=== PATIENT | male | born 1990 | race Caucasian/White ===

== ENCOUNTER 2018-07-19 18:38 | Emergency (ER) | payer MEDICAID ==
[~2018-07-19] VITALS: Ht 170.2 cm; Wt 63.0 kg
[~2018-07-19 18:38] MED LIST: CLIN150C8 PO; HYDR-2561 PO; LORA-269 PO; ONDA4TAB6 PO
[2018-07-19 19:20] VITALS: BP 133/97
== END 2018-07-19 20:19 | disposition left against medical advice (07) ==
LOC: ER 18:38
DX: R36.9 Urethral discharge, unspecified (principal); Z53.21 Procedure and treatment not carried out due to patient leaving prior to being seen by health care provider

== ENCOUNTER 2018-07-22 20:19 | Emergency (ER) | payer MEDICAID | END 2018-07-22 21:04 | disposition left against medical advice (07) | LOC: ER 20:20 | DX: A64 Unspecified sexually transmitted disease (principal); Z53.20 Procedure and treatment not carried out because of patient's decision for unspecified reasons ==

== ENCOUNTER 2021-04-16 08:20 | Emergency (ER) | payer MEDICAID, OTHER ==
[~2021-04-16] VITALS: Ht 170.2 cm; Wt 65.0 kg
[~2021-04-16 08:20] MED LIST changes: +LIDOcaine 1% 30ml preserv. free vial ONE
[2021-04-16 08:21] VITALS: BP 140/81
== END 2021-04-16 10:54 | disposition home or self-care (01) ==
LOC: ER 08:20
DX: S61.213A Laceration without foreign body of left middle finger without damage to nail, initial encounter (principal); F41.9 Anxiety disorder, unspecified; F12.90 Cannabis use, unspecified, uncomplicated; F15.90 Other stimulant use, unspecified, uncomplicated; F11.90 Opioid use, unspecified, uncomplicated; Z48.02 Encounter for removal of sutures; Z98.890 Other specified postprocedural states; Z72.89 Other problems related to lifestyle; Z88.8 Allergy status to other drugs, medicaments and biological substances; Z79.2 Long term (current) use of antibiotics; Z79.899 Other long term (current) drug therapy; X58.XXXA Exposure to other specified factors, initial encounter; Y93.89 Activity, other specified; Y92.89 Other specified places as the place of occurrence of the external cause; Y99.8 Other external cause status
CPT/HCPCS: 12002; 73140; 99283; J2001

== ENCOUNTER 2021-04-23 10:06 | Emergency (ER) | payer OTHER ==
[~2021-04-23] VITALS: Ht 170.2 cm; Wt 65.0 kg
[~2021-04-23 10:06] MED LIST changes: -LIDOcaine 1% 30ml preserv. free vial ONE
[2021-04-23 11:53] VITALS: BP 148/104
== END 2021-04-23 14:15 | disposition home or self-care (01) ==
LOC: ER 10:07
DX: S61.231D Puncture wound without foreign body of left index finger without damage to nail, subsequent encounter (principal); F41.9 Anxiety disorder, unspecified; F12.90 Cannabis use, unspecified, uncomplicated; F15.90 Other stimulant use, unspecified, uncomplicated; F11.90 Opioid use, unspecified, uncomplicated; Z98.890 Other specified postprocedural states; Z72.89 Other problems related to lifestyle; Z88.8 Allergy status to other drugs, medicaments and biological substances; Z79.2 Long term (current) use of antibiotics; Z79.899 Other long term (current) drug therapy; X58.XXXD Exposure to other specified factors, subsequent encounter
CPT/HCPCS: 99281

== ENCOUNTER 2021-05-19 02:33 | Emergency (ER) | payer MEDICAID, OTHER ==
[~2021-05-19] VITALS: Ht 170.2 cm; Wt 65.0 kg
--- NOTE | 2021-05-19 03:16 | NUR ---
Officers at bedside to speak with patient-
--- NOTE | 2021-05-19 03:33 | NUR ---
Mother of patient can be reached at [phone]. States she will be free around 9am if needed. Patient at this time states he does not wish to speak with anyone.
[2021-05-19 04:00] VITALS: BP 127/78
[2021-05-19] MEDS ORDERED: normal saline 1000ML IV soln IVB ONE (04:40)
[2021-05-19] MEDS ORDERED: TETanus/Pertussis (Acell)/Diphther VAC/PF (Tdap-Adult) 0.5ml syringe IMVAC ONE (04:45)
[2021-05-19] MEDS ORDERED: LIDOcaine 1% W/epiNEPHrine 1:200,000 10ml vial IJ ONE (04:45)
[2021-05-19] MEDS ORDERED: LIDOcaine 1% w/epiNEPHrine 1:200,000 30ml vial IJ ONE (04:50)
--- NOTE | 2021-05-19 05:01 | NUR ---
Pt. to CT scan with pattern grader cutter.
[2021-05-19 05:18] LABS: BASOPHILS # (AUTO) 0.1 X10'3 (0-0.2); BASOPHILS % (AUTO) 0.5 % (0-1); EOSINOPHILS % (AUTO) 0.4 % (0-6); HEMATOCRIT 47.6 % (42.0-52.0); HEMOGLOBIN 15.8 g/dl (14.0-17.9); LYMPHOCYTES # (AUTO) 1.5 X10'3 (1.1-4.8); LYMPHOCYTES % (AUTO) 12.7 % (21-51); MEAN CORPUSCULAR HEMOGLOBIN 30.6 PG (27.0-31.0); MEAN CORPUSCULAR HGB CONC 33.3 g/dL (33.0-36.5); MEAN CORPUSCULAR VOLUME 91.9 FL (78-98); MONOCYTES # (AUTO) 0.5 X10'3 (0-0.9); MONOCYTES % (AUTO) 4.6 % (2-12); NEUTROPHILS # (AUTO) 9.7 X10'3 (1.8-7.7); NEUTROPHILS % (AUTO) 81.8 % (42-75); PLATELET COUNT 260 X10'3 (140-440); RED BLOOD COUNT 5.17 X10'6 (4.70-6.10); RED CELL DISTRIBUTION WIDTH 14.2 % (11.5-14.5); WHITE BLOOD COUNT 11.9 X10'3 (4.5-11.0)
[2021-05-19 05:33] LABS: ALANINE AMINOTRANSFERASE 120 U/L (12-78); ALBUMIN 4.1 G/DL (3.4-5.0); ALBUMIN/GLOBULIN RATIO 1.2 (1.1-1.5); ALKALINE PHOSPHATASE 73 IU/L (46-116); ANION GAP 11 (8-16); ASPARTATE AMINO TRANSFERASE 84 U/L (10-37); BILIRUBIN,TOTAL 0.3 MG/DL (0.1-1.0); BLOOD UREA NITROGEN 12 MG/DL (7-18); BUN/CREATININE RATIO 15.8 (5.4-32.0); CALCIUM 8.1 MG/DL (8.5-10.1); CHLORIDE 107 MMOL/L (99-107); CREATININE 0.76 MG/DL (0.60-1.10); ETHANOL 0.231 GM/DL (0.0-0.010); GLUCOSE 107 MG/DL (70-104); POTASSIUM 4.1 MMOL/L (3.5-5.1); SODIUM 143 MMOL/L (135-145); TOTAL CARBON DIOXIDE 25.3 MMOL/L (24-32); TOTAL PROTEIN 7.4 G/DL (6.4-8.2); eGFR > 90 ML/MIN
== END 2021-05-19 07:55 | disposition home or self-care (01) ==
LOC: ER 02:33
DX: S01.01XA Laceration without foreign body of scalp, initial encounter (principal); S01.511A Laceration without foreign body of lip, initial encounter; F10.129 Alcohol abuse with intoxication, unspecified; F12.90 Cannabis use, unspecified, uncomplicated; F15.90 Other stimulant use, unspecified, uncomplicated; F11.90 Opioid use, unspecified, uncomplicated; Y90.0 Blood alcohol level of less than 20 mg/100 ml; Z88.8 Allergy status to other drugs, medicaments and biological substances; Z79.899 Other long term (current) drug therapy; Y09 Assault by unspecified means; Y93.89 Activity, other specified; Y92.481 Parking lot as the place of occurrence of the external cause; Y99.8 Other external cause status
CPT/HCPCS: 12001; 12011; 36415; 70450; 71045; 80053; 80320; 85025; 90471; 90715; 93005; 96360; 96361; 99285; J7030

== ENCOUNTER 2024-10-27 18:32 | Emergency (ER) | payer MEDICAID, OTHER ==
[~2024-10-27] VITALS: Ht 170.2 cm; Wt 68.2 kg
[~2024-10-27 18:32] MED LIST changes: +CLIN-214 PO; -CLIN150C8 PO
[2024-10-27 18:49] VITALS: BP 135/86; PULSE 94; RESP 20; TEMP 98.5; O2SAT 99
== END 2024-10-27 20:00 ==
LOC: ER 18:32
DX: F10.129 Alcohol abuse with intoxication, unspecified (principal); F12.90 Cannabis use, unspecified, uncomplicated; F15.90 Other stimulant use, unspecified, uncomplicated; F11.90 Opioid use, unspecified, uncomplicated; F41.9 Anxiety disorder, unspecified; Z88.8 Allergy status to other drugs, medicaments and biological substances; Z98.890 Other specified postprocedural states; Y90.9 Presence of alcohol in blood, level not specified; V89.2XXA Person injured in unspecified motor-vehicle accident, traffic, initial encounter; Y93.89 Activity, other specified; Y92.89 Other specified places as the place of occurrence of the external cause; Y99.8 Other external cause status
CPT/HCPCS: 99283

== ENCOUNTER 2025-02-07 13:39 | Inpatient (IN) | payer BC, OTHER ==
[~2025-02-07] VITALS: Ht 170.2 cm; Wt 63.6 kg
[2025-02-07 14:55] LABS: BASOPHILS % (AUTO) 0.4 % (0-1); EOSINOPHILS % (AUTO) 0 % (0-6); HEMATOCRIT 41.3 % (42.0-52.0); HEMOGLOBIN 13.9 g/dl (14.0-17.9); LYMPHOCYTES # (AUTO) 0.5 X10'3 (1.1-4.8); LYMPHOCYTES % (AUTO) 4.1 % (21-51); MEAN CORPUSCULAR HGB CONC 33.7 g/dL (33.0-36.5); MEAN CORPUSCULAR VOLUME 92.1 FL (78-98); MONOCYTES # (AUTO) 0.7 X10'3 (0-0.9); MONOCYTES % (AUTO) 5.5 % (2-12); PLATELET COUNT 139 X10'3 (140-440); RED BLOOD COUNT 4.48 X10'6 (4.70-6.10); WHITE BLOOD COUNT 12.3 X10'3 (4.5-11.0)
[2025-02-07 15:13] LABS: ALANINE AMINOTRANSFERASE 69 U/L (12-78); ALBUMIN 3.8 G/DL (3.4-5.0); ALBUMIN/GLOBULIN RATIO 1.2 (1.1-1.5); ALKALINE PHOSPHATASE 53 IU/L (46-116); ANION GAP 14 (8-16); ASPARTATE AMINO TRANSFERASE 55 U/L (10-37); BILIRUBIN,TOTAL 0.6 MG/DL (0.1-1.0); BLOOD UREA NITROGEN 9 MG/DL (7-18); BUN/CREATININE RATIO 10.5 (10.0-20.0); CALCIUM 8.4 MG/DL (8.5-10.1); CHLORIDE 103 MMOL/L (99-107); CREATININE 0.86 MG/DL (0.60-1.10); GLUCOSE 156 MG/DL (70-104); SODIUM 141 MMOL/L (135-145); TOTAL CARBON DIOXIDE 24.5 MMOL/L (24-32); TOTAL PROTEIN 7.1 G/DL (6.4-8.2); eCRCL 109 ML/MIN; eGFR > 90 ML/MIN
[2025-02-07] MEDS: normal saline 1000ml 1,000 ML IV ONE ×2 (15:19→15:20)
[2025-02-07 15:20] LABS: PRO BRAIN NATRIURETIC PEPTIDE 50 PG/ML (0-125)
[2025-02-07] MEDS: diazepam inj 5 MG/ML inj. IV ONE ×2 (15:20→17:15)
[2025-02-07] MEDS: LIDOcaine 5% patch TP STA (17:14)
[2025-02-07] MEDS: ketorolac trometh 15mg/ml vial 15 MG/ML ML IV ONE (17:15)
[2025-02-07] MEDS: phenoBARBITAL sod 130mg/ml inj. IV STA (17:15)
[2025-02-07] MEDS: thiamine 100mg/ml 2ml inj. IV ONE (17:15)
[2025-02-07] MEDS ORDERED: NO HOME MEDS (20:00)
[2025-02-07] MEDS ORDERED: potassium Cl 40MEQ/1/2NS 520ml 520 ML IV PRN (21:05)
[2025-02-07] MEDS ORDERED: mag hydrox/Alum hydrox/simeth 30ml oral suspension PO PRN (21:05)
[2025-02-07] MEDS ORDERED: ondansetron/PF 4mg/2ml inj IV PRN (21:05)
[2025-02-07] MEDS ORDERED: magnesium sulf-water 2g/50mL 50 ML IV PRN (21:05)
[2025-02-07] MEDS ORDERED: magnesium hydroxide 30ml (MOM) UD suspension PO PRN (21:05)
[2025-02-07] MEDS ORDERED: magnesium sulf-water 4G/100mL 100 ML IV PRN (21:05)
[2025-02-07] MEDS ORDERED: haloperidol lactate 5mg/ml inj IM PRN (21:05)
[2025-02-07] MEDS ORDERED: haloperidol 5mg tablet PO PRN (21:05)
[2025-02-07] MEDS ORDERED: acetaminophen 325mg tablet PO PRN (21:05)
[2025-02-07] MEDS ORDERED: LORazepam 2 mg/ml vial IV PRN (21:05)
[2025-02-07] MEDS ORDERED: magnesium Cl slow-release 64mg tablet PO PRN (21:05)
[2025-02-07] MEDS ORDERED: metoclopramide 5 mg/ml inj IV PRN (21:05)
[2025-02-07] MEDS: morphine 2 MG/ML inj. syringe IV PRN (21:24)
[2025-02-07] MEDS: normal saline 1000ml 1,000 ML IV SCH (21:25)
[2025-02-07 21:38] LABS: HEMOGLOBIN A1C 5.3 % (4.5-6.2)
[2025-02-07 21:46] LABS: BILIRUBIN,URINE NEGATIVE (Neg); CLARITY,URINE CLEAR (Clear); COLOR,URINE YELLOW (Yellow); GLUCOSE, URINE NEGATIVE (Neg); KETONES,URINE 40 mg/dl (Neg); LEUKOCYTE ESTERASE ,URINE NEGATIVE (Neg); NITRITES, URINE NEGATIVE (Neg); OCCULT BLOOD,URINE NEGATIVE (Neg); PH,URINE 7.5 (4.8-8.0); PROTEIN,URINE 100 mg/dl (Neg)
[2025-02-07 21:50] LABS: UA COLLECTION TYPE URINAL
[2025-02-07 21:58] LABS: BACTERIA,URINE NONE SEEN /HPF (Neg); MUCUS STRANDS NONE SEEN /LPF (Neg); RBC,URINE NONE SEEN /HPF (0-2); SQUAMOUS EPITHELIAL CELL,UR FEW /LPF (FEW); WBC,URINE 0-4 /HPF (0-4)
[2025-02-07 22:24] LABS: FREE T4 (FREE THYROXINE) 0.85 NG/DL (0.73-1.40); THYROID STIMULATING HORMONE 1.54 ulU/ml (0.34-4.50)
[2025-02-07 22:33] LABS: ETHANOL < 10 MG/DL (<10)
[2025-02-08] VITALS (12 sets, daily range): BP systolic 154–182; BP diastolic 99–124; PULSE 62–126; RESP 14–20; TEMP 96.1–98.9; O2SAT 97–100
[2025-02-08] MEDS: acetaminophen 325mg tablet PO PRN (00:09)
[2025-02-08] MEDS: HYDROcodone/acetaminophen 5mg/325mg tablet PO PRN (05:03)
[2025-02-08 06:41] LABS: BASOPHILS % (AUTO) 0.5 % (0-1); EOSINOPHILS # (AUTO) 0.1 X10'3 (0-0.9); HEMATOCRIT 40.5 % (42.0-52.0); HEMOGLOBIN 13.9 g/dl (14.0-17.9); LYMPHOCYTES # (AUTO) 1.2 X10'3 (1.1-4.8); LYMPHOCYTES % (AUTO) 20.9 % (21-51); MEAN CORPUSCULAR HEMOGLOBIN 31.8 PG (27.0-31.0); MEAN CORPUSCULAR HGB CONC 34.3 g/dL (33.0-36.5); MEAN CORPUSCULAR VOLUME 92.7 FL (78-98); MEAN PLATELET VOLUME 8.8 FL (7.4-10.4); MONOCYTES # (AUTO) 0.6 X10'3 (0-0.9); MONOCYTES % (AUTO) 10.1 % (2-12); NEUTROPHILS # (AUTO) 3.9 X10'3 (1.8-7.7); NEUTROPHILS % (AUTO) 67.5 % (42-75); PLATELET COUNT 105 X10'3 (140-440); RED BLOOD COUNT 4.37 X10'6 (4.70-6.10); RED CELL DISTRIBUTION WIDTH 16.3 % (11.5-14.5); WHITE BLOOD COUNT 5.8 X10'3 (4.5-11.0)
[2025-02-08 06:44] LABS: PROTHROMBIN TIME 10.5 SECONDS (9.0-12.0)
[2025-02-08 06:52] LABS: ALANINE AMINOTRANSFERASE 57 U/L (12-78); ALBUMIN 3.4 G/DL (3.4-5.0); ALKALINE PHOSPHATASE 51 IU/L (46-116); AMYLASE 57 U/L (25-115); ANION GAP 10 (8-16); ASPARTATE AMINO TRANSFERASE 61 U/L (10-37); BILIRUBIN,TOTAL 0.9 MG/DL (0.1-1.0); BLOOD UREA NITROGEN 8 MG/DL (7-18); CALCIUM 8.2 MG/DL (8.5-10.1); CHLORIDE 103 MMOL/L (99-107); CHOL/HDL RATIO 1.6 (0.00-4.99); CHOLESTEROL 193 MG/DL (0-200); CREATININE 0.57 MG/DL (0.60-1.10); GLUCOSE 88 MG/DL (70-104); HDL CHOLESTEROL 119 MG/DL (35-60); LDL CHOLESTEROL 64 MG/DL (50-100); LIPASE 37 U/L (16-77); MAGNESIUM 1.9 MG/DL (1.5-2.4); PHOSPHORUS 3.1 MG/DL (2.3-4.5); SODIUM 138 MMOL/L (135-145); TOTAL CARBON DIOXIDE 24.9 MMOL/L (24-32); TOTAL PROTEIN 6.7 G/DL (6.4-8.2); TRIGLYCERIDES 42 MG/DL (20-135); eCRCL 164 ML/MIN; eGFR > 90 ML/MIN
[2025-02-08] MEDS: K and/or MAG REPLACEMENT MC SCH (08:00)
[2025-02-08] MEDS: thiamine 100mg/ml 2ml inj. IV SCH (08:00)
[2025-02-08] MEDS: docusate sod 100mg capsule PO SCH (08:00)
[2025-02-08] MEDS: enoxaparin 40mg/0.4ml syringe SUBCUT SCH (08:55)
[2025-02-08] MEDS: potassium Cl 20 mEq SR tablet PO PRN ×2 (08:55→08:59)
[2025-02-08] MEDS: folic acid 1mg/0.2ml inj IV SCH (08:55)
[2025-02-08] MEDS: nicotine 21mg patch - 24 hr TD SCH (08:56)
[2025-02-08] MEDS: multivitamins, therapeutics tablet PO SCH (08:57)
[2025-02-08 09:24] LABS: URINE AMPHETAMINE SCREEN NEGATIVE (Neg); URINE BARBITUATE SCREEN POSITIVE (Neg); URINE BENZODIAZEPINES SCREEN NEGATIVE (Neg); URINE CANNABINOID SCREEN NEGATIVE (Neg); URINE COCAINE SCREEN NEGATIVE (Neg); URINE METHADONE SCREEN NEGATIVE (Neg); URINE OPIATE SCREEN POSITIVE (Neg); URINE PHENCYCLIDINE SCREEN NEGATIVE (Neg)
[2025-02-08 11:06] LABS: C DIFF ANTIGEN NEGATIVE (NEGATIVE); C DIFF SPECIMEN=DIARRHEA? ACCEPTABLE; C DIFFICILE TOXINS A&B NEGATIVE (Neg)
[2025-02-08] MEDS: diazepam inj 5 MG/ML inj. IV PRN (11:25)
[2025-02-08] MEDS: dextrose 5%-normal saline 1,000 ML IV SCH (14:52)
[2025-02-08] MEDS: hydrALAZINE 20mg/ml inj. IV ONE (17:30)
[2025-02-08] MEDS: levetiracetam 250mg tablet PO SCH (19:23)
[2025-02-08] MEDS: cloNIDine 0.2 MG/24 HR patch (7 day patch) TD ONE (19:28)
[2025-02-08] MEDS: nicotine 21mg patch - 24 hr TD ONE (20:23)
[2025-02-09 11:12] LABS: HEPATITIS C VIRUS ANTIBODY Reactive (Non Reactive)
[2025-02-09] MEDS ORDERED: LORazepam 2 mg/ml vial IV PRN (21:05)
[2025-02-09] MEDS ORDERED: LORazepam 1 MG tablet PO PRN (21:05)
[2025-02-11] MEDS ORDERED: thiamine 100mg tablet PO SCH (08:00)
[2025-02-11] MEDS ORDERED: LORazepam 1 MG tablet PO PRN (21:05)
[2025-02-11] MEDS ORDERED: LORazepam 2 mg/ml vial IV PRN (21:05)
[2025-02-12] MEDS ORDERED: folic acid 1mg tablet PO SCH (08:00)
== END 2025-02-09 00:30 | disposition left against medical advice (07) | DRG 101 ==
LOC: ER 13:40 → ED HOLD 20:06 → ORTHO 4S 02-08 01:50
PROVIDERS: ADMIT Internal Medicine; ATTEND Family Medicine
PROC: 4A00X4Z Measurement of Central Nervous Electrical Activity, External Approach (ICD-10-PCS; principal; 2025-02-08)
DX: R56.9 Unspecified convulsions (principal); F10.939 Alcohol use, unspecified with withdrawal, unspecified; F11.90 Opioid use, unspecified, uncomplicated; M54.89 Other dorsalgia; E87.6 Hypokalemia; Z53.21 Procedure and treatment not carried out due to patient leaving prior to being seen by health care provider; F41.9 Anxiety disorder, unspecified; Z88.8 Allergy status to other drugs, medicaments and biological substances; Z79.899 Other long term (current) drug therapy
CPT/HCPCS: 36415; 70450; 71045; 72070; 72100; 80053; 80061; 80305; 80320; 81001; 82140; 82150; 82607; 83036; 83605; 83690; 83735; 83880; 84100; 84439; 84443; 84484; 85025; 85610; 86803; 87045; 87046; 87081; 87324; 87449; 87522; 89055; 93005; 93306; 95816; 96374; 96375; 96376; 99291; A6258; G0378; J0360; J1650; J1885; J2270; J2560; J3360; J3411; J3490; J7030; J7042

== ENCOUNTER 2025-03-07 21:43 | Emergency (ER) | payer OTHER ==
[~2025-03-07] VITALS: Ht 170.2 cm; Wt 68.6 kg
[~2025-03-07 21:43] MED LIST changes: -CLIN-214 PO; -HYDR-2561 PO; -LORA-269 PO; +NO HOME MEDS; -ONDA4TAB6 PO
[2025-03-07 22:19] LABS: BASOPHILS # (AUTO) 0.1 X10'3 (0-0.2); BASOPHILS % (AUTO) 0.9 % (0-1); EOSINOPHILS # (AUTO) 0.1 X10'3 (0-0.9); EOSINOPHILS % (AUTO) 1.8 % (0-6); HEMATOCRIT 45.4 % (42.0-52.0); HEMOGLOBIN 15.2 g/dl (14.0-17.9); LYMPHOCYTES # (AUTO) 1.9 X10'3 (1.1-4.8); LYMPHOCYTES % (AUTO) 31.2 % (21-51); MEAN CORPUSCULAR HEMOGLOBIN 32.1 PG (27.0-31.0); MEAN CORPUSCULAR HGB CONC 33.5 g/dL (33.0-36.5); MEAN CORPUSCULAR VOLUME 95.7 FL (78-98); MEAN PLATELET VOLUME 7.3 FL (7.4-10.4); MONOCYTES # (AUTO) 0.5 X10'3 (0-0.9); MONOCYTES % (AUTO) 7.7 % (2-12); NEUTROPHILS # (AUTO) 3.6 X10'3 (1.8-7.7); NEUTROPHILS % (AUTO) 58.4 % (42-75); PLATELET COUNT 269 X10'3 (140-440); RED BLOOD COUNT 4.74 X10'6 (4.70-6.10); RED CELL DISTRIBUTION WIDTH 15.8 % (11.5-14.5); WHITE BLOOD COUNT 6.1 X10'3 (4.5-11.0)
[2025-03-07 22:39] LABS: ALBUMIN 3.9 G/DL (3.4-5.0); ANION GAP 8 (8-16); BLOOD UREA NITROGEN 7 MG/DL (7-18); BUN/CREATININE RATIO 7.1 (10.0-20.0); CALCIUM 8.4 MG/DL (8.5-10.1); CHLORIDE 104 MMOL/L (99-107); CREATININE 0.98 MG/DL (0.60-1.10); GLUCOSE 141 MG/DL (70-104); POTASSIUM 4.6 MMOL/L (3.5-5.1); SODIUM 142 MMOL/L (135-145); THYROID STIMULATING HORMONE 0.78 ulU/ml (0.34-4.50); TOTAL CARBON DIOXIDE 30.4 MMOL/L (24-32); eCRCL 99 ML/MIN; eGFR 88 ML/MIN
[2025-03-07 22:43] LABS: ETHANOL 363 MG/DL (<10)
[2025-03-07 22:57] LABS: BILIRUBIN,URINE NEGATIVE (Neg); CLARITY,URINE CLEAR (Clear); COLOR,URINE YELLOW (Yellow); GLUCOSE, URINE NEGATIVE (Neg); KETONES,URINE TRACE mg/dl (Neg); LEUKOCYTE ESTERASE ,URINE NEGATIVE (Neg); NITRITES, URINE NEGATIVE (Neg); OCCULT BLOOD,URINE NEGATIVE (Neg); PROTEIN,URINE NEGATIVE (Neg); UROBILINOGEN,URINE 0.2 E.U/dL (0.2-1.0)
--- NOTE | 2025-03-07 22:57 | Physician Documentation ---
History of Present Illness ~ Chief Complaint: 5150 Stated Complaint: 5150 Time Seen by MD: 22:49 Primary Medical Doctor: Unknown HPI Patient presents to the emergency room brought in on a written 5150. Is reported that patient has a history of alcohol abuse and it was making threats to his family therefore 5150 placed. Currently the patient has cooperative. No complaints Medication Reconciliation Allergies: Coded Allergies: esomeprazole (Verified Allergy, Intermediate, STOMACH PAIN, 03/07/25) Miscellaneous Medications Home Med List (No Home Medications), (Reported) Past Medical History Past Medical History: Headache, Hernia, Anxiety Past Surgical History: abdominal surgery Other Past Surgical History: hernia repair Patient History: FHx: alcoholism Alcohol Use: Heavy Drug Use: marijuana, methamphetamine, heroin Lives with: Family Lives In: Home Occupation: employed Review of Systems ROS All review of systems negative except as per HPI Physical Exam Vital Signs: Temperature: 98.3, Source: Oral, Heart Rate: 88, Respiratory Rate: 16, BP: 160/131, Pulse Oximetry: 95, Weight: 68.630 Physical Exam General: Patient is awake, alert, oriented x4 in no acute distress Head: Normocephalic and atraumatic. Eyes: Conjunctival normal. EOMI. PERRL. ENT: Mucous membranes moist. Neck: Supple, trachea is midline. Chest: Clear to auscultation bilaterally without rales, rhonchi, or wheezes. There is no accessory muscle use or retractions. Cardiac: RRR without murmurs, gallops, or rubs. Psych: Paranoid, cooperative, poor eye contact Progress Results/Orders Results/Orders Orders - EMANUEL DOMINGUEZ MD Urinalysis (03/07/25 22:03) Drug Screen, Urine (03/07/25 22:03) Med Rec (03/07/25 22:03) Close Observation Level (03/07/25 22:03) Covid19 Binax Poc Result Entry (03/07/25 22:03) Regular Diet (03/08/25 Breakfast) Completed Orders - EMANUEL DOMINGUEZ MD Cbc/Diff (03/07/25 22:03) Ethanol (03/07/25 22:03) TSH (03/07/25 22:03) BMP (03/07/25 22:03) Vital Signs 03/07/25 03/07/25 21:45 21:50 Temp 98.3 Pulse 88 Resp 16 B/P (MAP) 160/131 Pulse Ox 95 Laboratory Tests Test 03/07/25 22:09 03/07/25 22:20 03/07/25 22:36 White Blood Count 6.1 Red Blood Count 4.74 Hemoglobin 15.2 Hematocrit 45.4 Mean Corpuscular Volume 95.7 Mean Corpuscular Hemoglobin 32.1 H Mean Corpuscular Hemoglobin Concent 33.5 Red Cell Distribution Width 15.8 H Platelet Count 269 Mean Platelet Volume 7.3 L Neutrophils (%) (Auto) 58.4 Lymphocytes (%) (Auto) 31.2 Monocytes (%) (Auto) 7.7 Eosinophils (%) (Auto) 1.8 Basophils (%) (Auto) 0.9 Neutrophils # (Auto) 3.6 Lymphocytes # (Auto) 1.9 Monocytes # (Auto) 0.5 Eosinophils # (Auto) 0.1 Basophils # (Auto) 0.1 CBC Comment Sodium Level 142 Potassium Level 4.6 Chloride Level 104 Carbon Dioxide Level 30.4 Anion Gap 8 Blood Urea Nitrogen 7 Creatinine 0.98 Estimated GFR/1.73 m2 88 BUN/Creatinine Ratio 7.1 L Glucose Level 141 H Calcium Level 8.4 L Albumin 3.9 Thyroid Stimulating Hormone (TSH) 0.78 Chemistry Comments Ethyl Alcohol Level 363 H SARS-CoV-2 Antigen (Rapid) Negative Urine Comment Drug Screen Comment Medical Decision Making Findings Patient presented to the emergency room on a written 5150. Labs reviewed and there was no evidence of major pathologic derangements and he is medically cleared for mental health evaluation. No signs of alcohol withdrawal at this time Departure Disposition: 30 STILL A PATIENT Impression: Primary Impression: At risk for danger to others Additional Impression: Alcohol intoxication Condition: Guarded Referrals: NO PRIMARY CARE PROVIDER (PCP) Signature Scribe Signature: No scribe Attestation: The note accurately reflects work and decisions made by me.Emanuel Dominguez MD 03/07/25 22:57 EMANUEL DOMINGUEZ MD March 07, 2025 22:57
[2025-03-07 22:59] LABS: UA COLLECTION TYPE NON-SPECIFIED
[2025-03-07 23:06] LABS: URINE AMPHETAMINE SCREEN NEGATIVE (Neg); URINE BARBITUATE SCREEN NEGATIVE (Neg); URINE BENZODIAZEPINES SCREEN NEGATIVE (Neg); URINE CANNABINOID SCREEN NEGATIVE (Neg); URINE COCAINE SCREEN NEGATIVE (Neg); URINE METHADONE SCREEN POSITIVE (Neg); URINE OPIATE SCREEN NEGATIVE (Neg); URINE PHENCYCLIDINE SCREEN NEGATIVE (Neg)
[2025-03-07 23:23] VITALS: TEMP 98.1
[2025-03-08 06:48] VITALS: BP 155/100; PULSE 89; RESP 14; O2SAT 98
== END 2025-03-08 09:58 | disposition home or self-care (01) ==
LOC: ER 21:44
DX: F10.129 Alcohol abuse with intoxication, unspecified (principal); F12.90 Cannabis use, unspecified, uncomplicated; F15.90 Other stimulant use, unspecified, uncomplicated; F11.90 Opioid use, unspecified, uncomplicated; Z98.890 Other specified postprocedural states; Z20.822 Contact with and (suspected) exposure to COVID-19; Y90.9 Presence of alcohol in blood, level not specified
CPT/HCPCS: 36415; 80048; 80305; 80320; 81003; 84443; 85025; 87811; 99285

== ENCOUNTER 2025-04-27 14:10 | Emergency (ER) | payer OTHER ==
[~2025-04-27] VITALS: Ht 170.2 cm; Wt 69.8 kg
[2025-04-27 14:14] VITALS: TEMP 98.1
[2025-04-27 14:46] LABS: MEAN PLATELET VOLUME 7.4 FL (7.4-10.4); RED CELL DISTRIBUTION WIDTH 13.6 % (11.5-14.5)
[2025-04-27 15:13] LABS: CREATININE 0.66 MG/DL (0.60-1.10); TOTAL CARBON DIOXIDE 26.4 MMOL/L (24-32); eCRCL 147 ML/MIN; eGFR > 90 ML/MIN
--- NOTE | 2025-04-27 16:51 | Physician Documentation ---
History of Present Illness ~ Chief Complaint: Bloody Stools Stated Complaint: BLOODY STOOLS Time Seen by MD: 15:58 Primary Medical Doctor: Unknown HPI Patient is seen today with concern and complaint for E coli. Patient states he was swimming and [place] and heard that there was E coli in the water. Patient states he has developed diarrhea about three days ago and even had some episodes of bloody diarrhea but patient states his symptoms are improving. He states he has had 3-4 episodes of diarrhea per day for the last three days. Patient denies any abdominal cramping or fevers or chills denies any abdominal pain but states he did have a few episodes of vomiting. Patient states he drinks at least 6-9 beers a day and just a day or two ago drank 30 beers. And he states he regularly does that on the weekends. Patient has no other concern or complaint at this time. Medication Reconciliation Allergies: Coded Allergies: esomeprazole (Verified Allergy, Intermediate, STOMACH PAIN, 04/27/25) Miscellaneous Medications Home Med List (No Home Medications), (Reported) Past Medical History Past Medical History: Headache, Hernia, Anxiety Past Surgical History: abdominal surgery Other Past Surgical History: hernia repair Patient History: FHx: alcoholism Alcohol Use: Heavy Drug Use: marijuana, methamphetamine, heroin Lives with: Family Lives In: Home Occupation: employed Review of Systems Constitutional: Denies: chills, fever, weakness Eyes: Denies: pain, blurred vision ENT: Denies: ear pain, nose pain, throat pain, mouth pain Respiratory: Denies: cough, shortness of breath Cardiovascular: Denies: chest pain, palpitations Gastrointestinal: Denies: abdominal pain, nausea, vomiting Genitourinary: Denies: burning, dysuria Male Genitalia: Denies: penile discharge, testicular pain Neurological: Denies: headache, dizziness Musculoskeletal: Denies: pain, swelling Integumentary: Denies: rash, lesions Allergic/Immunologic: Denies: hives, itching Hematologic/Lymphatic: Denies: no symptoms reported Psychiatric: Denies: depression, anxiety Physical Exam Vital Signs: Temperature: 98.1, Source: Temporal, Heart Rate: 88, Respiratory Rate: 18, BP: 138/113, Pulse Oximetry: 98, Weight: 69.800 Oxygen Flow Rate: 0 Physical Exam General: Awake and Alert, no acute distress. HEENT: Conjunctiva pink, Sclera clear, Mucus Membranes moist. Neck: Supple without masses and tenderness. Resp: Unlabored. Lungs clear to auscultation bilaterally. Heart: Regular Rate and rhythm, normal S1 and S2 without murmur, rub or gallop. Abdomen: Soft and non tender no organomegaly, no guarding, no rebound tenderness. Extremities: No cyanosis,clubbing or edema. Skin: Warm and Dry. Progress Results/Orders Results/Orders Vital Signs 04/27/25 14:14 Temp 98.1 Pulse 88 Resp 18 B/P (MAP) 138/113 Pulse Ox 98 O2 Flow Rate 0 Laboratory Tests Test 04/27/25 14:31 White Blood Count 7.1 Red Blood Count 5.25 Hemoglobin 16.8 Hematocrit 49.8 Mean Corpuscular Volume 94.8 Mean Corpuscular Hemoglobin 32.0 H Mean Corpuscular Hemoglobin Concent 33.7 Red Cell Distribution Width 13.6 Platelet Count 241 Mean Platelet Volume 7.4 Neutrophils (%) (Auto) 68.0 Lymphocytes (%) (Auto) 22.0 Monocytes (%) (Auto) 8.1 Eosinophils (%) (Auto) 0.8 Basophils (%) (Auto) 1.1 H Neutrophils # (Auto) 4.9 Lymphocytes # (Auto) 1.6 Monocytes # (Auto) 0.6 Eosinophils # (Auto) 0.1 Basophils # (Auto) 0.1 CBC Comment Sodium Level 140 Potassium Level 3.8 Chloride Level 101 Carbon Dioxide Level 26.4 Anion Gap 13 Blood Urea Nitrogen 7 Creatinine 0.66 Estimated GFR/1.73 m2 > 90 BUN/Creatinine Ratio 10.6 Glucose Level 118 H Calcium Level 8.6 Total Bilirubin 0.3 Aspartate Amino Transf (AST/SGOT) 192 H Alanine Aminotransferase (ALT/SGPT) 198 H Alkaline Phosphatase 56 Total Protein 7.9 Albumin 4.1 Globulin 3.8 Albumin/Globulin Ratio 1.1 Lipase 55 Chemistry Comments Medical Decision Making Findings Patient is seen today with concern and complaint for E coli. Patient states he was [place] and heard that there was E coli in the water. Patient states he has developed diarrhea about three days ago and even had some episodes of bloody diarrhea but patient states his symptoms are improving. He states he has had 3-4 episodes of diarrhea per day for the last three days. Patient denies any abdominal cramping or fevers or chills denies any abdominal pain but states he did have a few episodes of vomiting. Patient states he drinks at least 6-9 beers a day and just a day or two ago drank 30 beers. And he states he regularly does that on the weekends. Patient has no other concern or complaint at this time. Patient will discontinue the consumption of such large amounts of beer and alcohol. Patient is cleared to return to work full duty. Patient will stay well hydrated and advance diet and activity level as tolerated and will follow up with primary care in 2-5 days if no better as needed sooner. Return to ED with any worsening, concerning or changing symptoms. Departure Disposition: HOME / SELF CARE / HOMELESS Impression: Primary Impression: Bloody diarrhea Additional Impression: Alcoholism Condition: Stable Discharge Instructions: Bloody Diarrhea Additional Instructions: Patient is cleared to return to work full duty. Patient will stay well hydrated and advance diet and activity level as tolerated and will follow up with primary care in 2-5 days if no better as needed sooner. Return to ED with any worsening, concerning or changing symptoms. Referrals: NO PRIMARY CARE PROVIDER (PCP) Signature Scribe Signature: No scribe Attestation: No scribe VANE HODGES PAC Apr 27, 2025 16:51
[2025-04-27 16:55] VITALS: BP 144/85; PULSE 83; RESP 16; O2SAT 98
== END 2025-04-27 17:02 | disposition home or self-care (01) ==
LOC: ER 14:11
DX: R19.7 Diarrhea, unspecified (principal); F10.20 Alcohol dependence, uncomplicated; F41.9 Anxiety disorder, unspecified; F12.90 Cannabis use, unspecified, uncomplicated; F15.90 Other stimulant use, unspecified, uncomplicated; F11.90 Opioid use, unspecified, uncomplicated; Z98.890 Other specified postprocedural states; Z88.8 Allergy status to other drugs, medicaments and biological substances
CPT/HCPCS: 36415; 80053; 83690; 85025; 99283